=== PATIENT | female | born 1970 | race Caucasian/White ===

== ENCOUNTER 2017-07-04 05:07 | Inpatient (IN) ==
[2017-07-02 15:53] LABS: MANUAL DIFF NEEDED? NO; URINE MICRO REVIEW NEEDED? NO; URINE SOURCE CLEAN CATCH
[2017-07-02 15:57] LABS: BILIRUBIN URINE NEGATIVE (NEGATIVE); BLOOD URINE NEGATIVE (NEGATIVE); COLOR YELLOW; GLUCOSE URINE NEGATIVE (NEGATIVE); LEUKOCYTES URINE NEGATIVE (NEGATIVE); NITRITE URINE NEGATIVE (NEGATIVE); PROTEIN URINE NEGATIVE (NEGATIVE); SP GRAVITY URINE 1.024; TURBIDITY URINE CLEAR (CLEAR); UROBILINOGEN URINE NORMAL (NORMAL)
[2017-07-02 15:58] LABS: UR EPITHELIAL CELLS <10 /HPF (<10); URINE BACTERIA NEGATIVE /HPF; URINE RBC <10 /HPF (<10); URINE WBC <10 /HPF (<10)
[2017-07-02 16:14] LABS: BASO% 0.3 % (0.0-0.8); EOS# 0.35 X1000 (0.0-0.7); EOS% 3.3 % (0.0-10.0); HEMATOCRIT 43.4 % (37.0-47.0); HEMOGLOBIN 14.7 g/dL (12.0-16.0); IMM GRAN# 0.02 X1000 (0.0-0.04); IMM GRAN% 0.2 % (0.0-0.5); LYMPH% 36.2 % (20.5-51.1); MCH 29.9 PG (27-31); MCHC 33.9 g/dL (33-37); MCV 88.2 FL (81-99); MONO# 0.98 X1000 (0.11-0.59); MONO% 9.3 % (1.7-9.3); MPV 9.5 FL (7.4-10.4); NEUT% 50.7 % (42.2-75.2); PLT 358 X1000 (130-400); RBC 4.92 XMIL (4.2-5.4)
--- NOTE | 2017-07-03 09:43 | HISTORY AND PHYSICAL ---
DATE OF PLANNED PROCEDURE: 07/04/2017 PREOPERATIVE DIAGNOSES: 1. Pelvic pain. 2. Enlarged uterus. 3. Uterine fibroids. 4. Incontinence, both urge and stress. CONDITION: Stable. HISTORY OF PRESENT ILLNESS: Ms. Silva is a 46-year-old, 2, para 2, who has been experiencing increasing pelvic pain and abnormal bleeding, and also incontinence over the past few months. Recent ultrasound revealed an enlarged fibroid uterus. A decision was made to proceed with abdominal hysterectomy to hopefully improve the urge incontinence and a mid urethral sling to improve the stress incontinence. She has no other past medical history. PAST SURGICAL HISTORY: Her only past surgical history is an appendectomy in 1986. 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 Her most recent Pap smear, of May was within normal limits and HPV was negative. ALLERGIES: She has no known drug allergies. MEDICATIONS: She takes Maxalt 10 mg p.r.n. for migraines and Ennice for pain. SOCIAL HISTORY: She is . She denies tobacco, alcohol, or drug use. FAMILY HISTORY: Family history is significant for mother with ovarian cancer at age 84, hypertension, and migraines. Father with diabetes, hypertension, an TN, and CVA. PHYSICAL EXAMINATION: VITAL SIGNS: Weight 215, blood pressure 122/88. GENERAL: She is alert and cooperative, in no distress. NECK: Neck is supple. LUNGS: Clear. HEART: Regular sinus rhythm. ABDOMEN: Soft. PELVIC: Deferred. EXTREMITIES: No cyanosis, clubbing, or edema in her extremities. ASSESSMENT: As above. PLAN: Abdominal hysterectomy with bilateral salpingo-oophorectomy, and Obtryx sling. cc: Elmer Ponce MD
[2017-07-04] MEDS ORDERED: LR 1,000 ML IV SCH ×2 (05:11→10:50)
[2017-07-04] MEDS ORDERED: SENSORCAINE 0.5%-EPI 1:200,000 ONE (07:04)
[2017-07-04] MEDS ORDERED: SODIUM CHLORIDE 0.9% ONE (07:04)
[2017-07-04] MEDS ORDERED: D10W 500 ML ONE (07:05)
[2017-07-04] MEDS ORDERED: PEPCID PO ONE (07:27)
[2017-07-04] MEDS ORDERED: REGLAN PO ONE (07:28)
[2017-07-04] MEDS ORDERED: DIPRIVAN 1% ONE (07:43)
[2017-07-04] MEDS ORDERED: QUELICIN (DOSE) ONE (07:43)
[2017-07-04] MEDS ORDERED: XYLOCAINE-MPF 2% ONE (07:44)
[2017-07-04] MEDS ORDERED: KEFZOL 2 GM/D5W 2 GM/50 ML IVPB ONE (07:52)
[2017-07-04] MEDS ORDERED: ZEMURON ONE (07:57)
[2017-07-04] MEDS ORDERED: FENTANYL ONE (08:03)
[2017-07-04] MEDS ORDERED: LR 1,000 ML ONE ×3 (08:06→11:52)
[2017-07-04] MEDS ORDERED: VERSED ONE (08:16)
[2017-07-04] MEDS ORDERED: ZOFRAN ONE (08:18)
[2017-07-04] MEDS ORDERED: DECADRON ONE (08:18)
[2017-07-04] MEDS ORDERED: ROBINUL ONE (08:22)
[2017-07-04] MEDS ORDERED: NEOSTIGMINE ONE (08:22)
[2017-07-04 08:43] LABS: URINE MICROSCOPIC NEEDED? NO; URINE SOURCE CATH
[2017-07-04 08:51] LABS: BILIRUBIN URINE NEGATIVE (NEGATIVE); BLOOD URINE NEGATIVE (NEGATIVE); CLARITY CLEAR (CLEAR); COLOR YELLOW; GLUCOSE URINE NEGATIVE (NEGATIVE); LEUKOCYTES URINE NEGATIVE (NEGATIVE); NITRITE URINE NEGATIVE (NEGATIVE); PROTEIN URINE NEGATIVE (NEGATIVE); SP GRAVITY URINE 1.005; UROBILINOGEN URINE NORMAL
[2017-07-04] MEDS ORDERED: TORADOL ONE (09:33)
[2017-07-04] MEDS ORDERED: MORPHINE ONE (10:32)
[2017-07-04] MEDS ORDERED: MORPHINE PCA ONE (10:32)
[2017-07-04] MEDS: PHENERGAN ONE ×2 (10:37→10:45)
[2017-07-04] MEDS ORDERED: SODIUM CHLORIDE 0.9% INJ PRN (10:50)
[2017-07-04] MEDS ORDERED: PHENERGAN IV PRN (10:50)
[2017-07-04] MEDS: MORPHINE ONE ×3 (10:50→11:03)
[2017-07-04] MEDS ORDERED: NARCAN IV PRN (10:50)
[2017-07-04] MEDS ORDERED: BENADRYL IV PRN (10:50)
[2017-07-04] MEDS ORDERED: ZOFRAN IV PRN (10:50)
--- NOTE | 2017-07-04 10:50 | OPERATIVE NOTE ---
PROCEDURE DATE: 07/04/2017 PREOPERATIVE DIAGNOSES: 1. Enlarged uterus. 2. Uterine fibroids. 3. Pelvic pain. 4. Incontinence. POSTOPERATIVE DIAGNOSES: 1. Enlarged uterus. 2. Uterine fibroids. 3. Pelvic pain. 4. Incontinence. PROCEDURE: Abdominal hysterectomy with bilateral salpingo-oophorectomy and obturator sling. PHYSICIAN: Elmer Ponce MD SHOT BLAST EQUIPMENT OPERATOR: Carlos Deal MD ANESTHESIA: General endotracheal with Chris Garcia MD. ESTIMATED BLOOD LOSS: 500 mL. FINDINGS: Enlarged multi-fibroid uterus. Left ovary with a 3-4 cm cyst. COMPLICATIONS: There are no complications. DRAINS: Arroyo catheter. PATHOLOGY: Uterus, tubes, and ovaries. Please refer to MsNandini Silva's H and P. DESCRIPTION OF PROCEDURE: She was admitted the morning of surgery. All questions were answered. Consents were verified. She was brought to the operating room where she was placed under general endotracheal anesthesia and prepped and draped in the dorsal lithotomy position. A Pfannenstiel skin incision was made and extended through the subcuticular tissue to the fascia. The fascia was extended laterally. Muscle was pulled to the side. Peritoneum was entered bluntly. An O'Nilton- O'Jackson retractor was placed. She was placed in steep Trendelenburg. An enlarged uterus was grasped with a Ras tenaculum and elevated out of the pelvis. The left infundibulopelvic grasped, cauterized, and cut. The left round ligament grasped, cauterized, and cut. Anterior and posterior leaves of the broad ligament grasped, cauterized, and cut to the level of the internal cervical os. Then this was repeated on patient's right side. At the internal cervical os, the peritoneum was elevated up and cut was made with the Metzenbaum's and the bladder was sharply dissected off of the cervix. This skeletonized the uterine arteries, which then were grasped, cauterized, and cut. Then in effort to get more room, the uterine fundus was amputated from the cervix and the cervix and the cervical stump was grasped with Yo's, and the cardinal ligaments and other supporting ligaments were grasped, cut, and suture ligated with 0 Vicryl. This was done to the level of the uterosacrals and vaginal angle. Then a curved clamp was placed and the tissue was cut exposing the cervix and then the rest of the vagina was cut completely freeing the cervix. Figure-eight stitches were put in the corners and the cuff was closed with a figure stitches of 0 Vicryl. Irrigation was done. Very little bleeding was noted. Surgical foam was placed. All laps were removed. The retractor was removed. Peritoneum closed with 0 chromic. Fascia closed with 0 Polysorb. Subcutaneous tissue reapproximated with 2-0 chromic. Skin closed with 4-0 Polysorb in a subcuticular stitch. All counts correct. Attention then turned to the sling procedure. The legs were elevated up. Weighted speculum was placed. The cuff was identified well, was inspected, and it was not bleeding. An area of the vagina about 1 cm underneath the urethral opening was grasped with an Allis and then one was grasped approximately a cm and a half below that. The vaginal mucosa was then tented. 20 mL of 0.25% Marcaine with epinephrine and saline was injected for hydrodissection. Incision was made in the midline and then the dissecting off to the side of the bladder, pushing the bladder to the midline was started with the Metzenbaum and was finished with blunt dissection. Once that area was cleaned off on both sides, stab incisions were made in the leg folds at the level of the clitoris. Using Obtryx, the needle was advanced through on the left side and followed out on the finger. The sling was attached and pulled back through. This was repeated on patient's right. At this point, cystoscopy was done. There was no injury to the bladder. Good urine efflux from the ureters were noted so a Galina was placed between the Obtryx sling material and the bladder. This was pulled up against the Galina. The outer sheath was cut and removed and a 7-8 guard dilator was placed through the urethra and got a good a plume of urine afterwards. So, the sling material was trimmed at the skin and the vaginal mucosa was reapproximated with 2-0 Polysorb running nonlocking. All counts were correct. She was awakened and taken to the recovery room in stable condition. cc: Elmer Ponce MD
[2017-07-04] MEDS ORDERED: NORCO-10 PO PRN (11:51)
[2017-07-04] MEDS ORDERED: ESTRADERM 0.05 MG/24 HR PATCH TD ONE (11:51)
[2017-07-04] MEDS: LR 1,000 ML IV SCH ×2 (11:52→18:42)
[2017-07-04] MEDS: MYLICON PO SCH ×3 (14:53→20:13)
[2017-07-04] MEDS: TORADOL IV SCH ×2 (17:25→22:22)
[2017-07-04] MEDS: MORPHINE PCA IV PRN (18:23)
[2017-07-04] MEDS: PERIDEX MT SCH (20:13)
[2017-07-04] MEDS: COLACE PO SCH (20:13)
[2017-07-05] MEDS: MORPHINE PCA IV PRN (02:17)
[2017-07-05] MEDS: LR 1,000 ML IV SCH ×2 (02:20→08:22)
[2017-07-05] MEDS: TORADOL IV SCH ×2 (04:11→10:05)
[2017-07-05 05:18] LABS: MANUAL DIFF NEEDED? NO
[2017-07-05 05:24] LABS: BASO% 0.1 % (0.0-0.8); EOS# 0.04 X1000 (0.0-0.7); EOS% 0.3 % (0.0-10.0); HEMATOCRIT 35.1 % (37.0-47.0); HEMOGLOBIN 11.1 g/dL (12.0-16.0); IMM GRAN# 0.03 X1000 (0.0-0.04); IMM GRAN% 0.2 % (0.0-0.5); LYMPH# 2.81 X1000 (1.2-3.4); LYMPH% 19.6 % (20.5-51.1); MCH 28.8 PG (27-31); MCHC 31.6 g/dL (33-37); MCV 91.2 FL (81-99); MONO# 1.76 X1000 (0.11-0.59); MONO% 12.3 % (1.7-9.3); MPV 9.5 FL (7.4-10.4); NEUT% 67.5 % (42.2-75.2); PLT 325 X1000 (130-400); RBC 3.85 XMIL (4.2-5.4)
[2017-07-05] MEDS: PERIDEX MT SCH ×3 (08:21→20:28)
[2017-07-05] MEDS: COLACE PO SCH ×3 (08:22→20:27)
[2017-07-05] MEDS: MYLICON PO SCH ×5 (08:22→20:28)
[2017-07-05] MEDS ORDERED: ZOFRAN ODT PO PRN (16:02)
--- NOTE | 2017-07-05 18:18 | PROGRESS NOTE ---
DATE: 07/05/2017 SUBJECTIVE: She is postop day 1 from abdominal hysterectomy and mid urethral sling. Condition stable. Ms. Silva is ambulating. She has voided without difficulty after Arroyo was removed. She has coughed and sneezed with no leakage of urine. She has tolerated p.o. OBJECTIVE: Vital Signs: Stable. She is afebrile. General: She is alert and cooperative, in no distress. Neck: Supple. Lungs: Clear. Heart: Regular sinus rhythm. Abdomen: Soft. Extremities: +2 lower extremity edema. LABS: Hemoglobin 11.1. PLAN: Routine postoperative instructions. Likely discharge in the morning. cc: Elmer Ponce MD
[2017-07-05] MEDS: PERCOCET-5 PO PRN ×2 (19:58→23:52)
[2017-07-06] MEDS: PERCOCET-5 PO PRN ×2 (05:43→09:58)
[2017-07-06 08:27] VITALS: BP 121/62
[2017-07-06] MEDS: PERIDEX MT SCH (09:53)
[2017-07-06] MEDS: COLACE PO SCH (09:53)
[2017-07-06] MEDS: MYLICON PO SCH (09:53)
--- NOTE | 2017-07-07 06:38 | DISCHARGE SUMMARY ---
ADMISSION DATE: 07/04/2017 DISCHARGE DATE: 07/06/2017 ADMITTING DIAGNOSES: 1. Enlarged uterus. 2. Pelvic pain. 3. Incontinence. DISCHARGE DIAGNOSES: 1. Enlarged uterus. 2. Pelvic pain. 3. Incontinence. PROCEDURE: Abdominal hysterectomy with bilateral salpingo-oophorectomy and an Obtryx mid-urethral sling. CONDITION: Stable. DIET: As tolerated. ACTIVITY: Routine postoperative instructions. MEDICATIONS: She is to resume all of her previous home medications and will give Percocet for pain. She is to followup in 2 weeks at the office. Please refer to Ms. Silva's H P and operative note. She was admitted for and underwent the above procedures. Afterwards she has done well. She is ambulating, voiding, tolerating p.o., and desiring discharge. PHYSICAL EXAMINATION: Vital Signs: Stable. She is afebrile. General Appearance: She is alert and cooperative. She does not appear to be any distress. Lungs: Clear. Heart: Regular sinus rhythm. Abdomen: Distended. Incision is dry and intact. Extremities: There is +2 lower extremity edema. MOST RECENT LABORATORY: A CBC from 07/05, postoperative day 1, hemoglobin 11.1. We will discharge with above instructions. cc: Elmer Ponce MD
== END 2017-07-06 12:40 | disposition home or self-care (01) ==
LOC: P.WC 05:07
PROVIDERS: ADMIT Obstetrics & Gynecology; ATTEND Obstetrics & Gynecology